=== PATIENT | female | born 1955 | race Caucasian/White ===

== ENCOUNTER → 2023-12-11 10:49 | Outpatient (CLI) | payer MEDICARE, OTHER, SELFPAY ==
--- NOTE | 2023-12-11 10:52 | DI.NM.S_ITS ---
PROCEDURE: NM BONE SCAN WHOLE BODY RADIOPHARMACEUTICAL: 20.8 mCi Tc-99m MDP IV. INDICATIONS: LOWER BACK PAIN,RENAL TECHNIQUE: Delayed whole-body scintigrams were obtained approximately 3-4 hours after intravenous injection of radiotracer. Anterior and posterior views were acquired from vertex to feet. COMPARISON: None. FINDINGS: No findings concerning for metastatic disease. Mildly increased activities within several joints including the shoulders and ankles, most consistent with degenerative changes. Left kidney appears absent. IMPRESSION: No findings concerning for metastatic disease. Dictated by: Esvin Perry M.D. on 12/11/2023 at 15:35 Approved by: Esvin Perry M.D. on 12/11/2023 at 15:37
== END ==
LOC: NUCM 10:51
PROVIDERS: PCP Nurse Practitioner Family; Referring Provider Nurse Practitioner Adult Health; Visit Provider Nurse Practitioner Adult Health
DX: C79.81 Secondary malignant neoplasm of breast (principal); C78.00 Secondary malignant neoplasm of unspecified lung; M54.50 Low back pain, unspecified; Z85.528 Personal history of other malignant neoplasm of kidney; Z90.5 Acquired absence of kidney
CPT/HCPCS: 78306; A9503

== ENCOUNTER 2025-01-07 10:42 | Day surgery (SDC) | payer MEDICARE, OTHER, SELFPAY ==
--- NOTE | 2025-01-07 | PATH_ITS ---
[facility] Accession Number: [id number] No. of containers..01 Tissue . 01 Material submitted: . gastrointestinal site - ANTRUM . 01 Clinical history: . R/O H.PYLORI . 01 Diagnosis: GASTRIC ANTRUM, BIOPSY: Gastric antral mucosa with mild chronic inflammation. Negative for Helicobacter organisms by immunohistochemistry. Negative for intestinal metaplasia. Negative for dysplasia or malignancy. [facility] 01/16/20252034 Local . 01 Electronically signed: . Victor M Wiley MD, PhD, Pathologist NPI- [id number] . 01 Gross description: . Received is one formalin-filled container labeled with the patient's name and labeled antrum, are two fragments of weiss, soft tissue which range in size from less than 0.1 cm to 0.3 x 0.2 x 0.2 cm. All fragments are totally submitted in cassette A1. ([id number]) /[facility] 01/14/2025 0847 Local . 01 Microscopic: . A. An immunohistochemical stain was performed to evaluate for Helicobacter organisms and is negative. The control stain showed appropriate reactivity. . * This test was developed and the performance characteristics were validated by [facility]. It has not been cleared or approved by the U.S. Food and Drug Administration. . 01 Pathologist provided ICD-10: K29.70 . 01 CPT . 608267, N21234 Specimen Comment: A courtesy copy of this report has been sent to [facility] Pathology Performed at: [address] [address], [place], [place] [id number] MD Modesto Lott MD Phone: [phone]
--- NOTE | 2025-01-07 06:48 | P.HP_ITS ---
History of Present Illness History of Present Illness Date Patient Seen: 01/07/25 Time Patient Seen: 06:48 [place] [facility] [place]: 69yo F presents for EGD today. H/O GERD, Kasie 10 years ago at [facility]. Has coronary stents, off Plavix to asa now. Meds Home Medications and Allergies Home Medications ?Medication ?Instructions ?Recorded ?Confirmed ?Type amlodipine 2.5 mg tablet 2.5 mg PO DAILY 12/02/2408/23 History amlodipine 5 mg tablet 5 mg PO DAILY 12/02/2412/02 History aspirin 81 mg chewable tablet 81 mg PO DAILY 12/02/24 12/02/24 History atorvastatin 40 mg tablet 40 mg PO DAILY 12/02/2408/23 History cabozantinib 20 mg tablet 20 mg PO DAILY 12/02/2408/23 History (Cabometyx) cranberry extract 500 mg capsule 500 mg PO BID 5 12/02/24 History famotidine 10 mg tablet (Pepcid AC) 10 mg PO DAILY 08/2312/02/24 History felodipine 10 mg tablet,extended 10 mg PO DAILY 12/02/24 History release 24 hr ipratropium bromide 21 mcg (0.03 2 spray intranasal 3X D PRN 12/02/24 12/02/24 History %) nasal spray allergies losartan 100 mg tablet 100 mg PO DAILY 12/02/2408/23 History melatonin 10 mg tablet 10 mg PO BEDTIME PRN 5 12/02/24 History tolterodine 4 mg capsule,extended 4 mg PO QPM 12/02/24 12/02/24 History release 24 hr trazodone 50 mg tablet 100 mg PO ONCE PM 12/02/24 0 12/02/24 History Allergies Allergy/AdvReac Type Severity Reaction Status Date / Time No Known Drug Allergies Allergy Unverified 12/02/24 10:39 Exam Narrative Exam Narrative: Const General: comfortable Orientation: alert and oriented x3 Resp Effort & Inspection: normal respiratory effort and able to speak in complete sentences Cardio Rate: regular rate GI Palpation: soft (NT) Extrem General: no pedal edema and no calf tenderness Assessment & Plan Assessment and plan (1) Encounter for screening colonoscopy: Status: Acute Plan Plan screening colonoscopy, possible biopsy. The risks, benefits and options regarding the procedure were explained to the patient in detail. Risk discussion included but not limited to: bleeding, perforation, missed lesion, unable to reach cecum. The patient was encouraged to ask questions and they were answered to their satisfaction. The patient understands and is agreeable to proceed. Time-Based Coding :: [TOTAL MINUTES] spent with patient and on the chart (including review of chart, obtaining history, exam, reviewing outside data, placing orders, documenting exam and treatment plan, and counseling patient) on [DATE]. PROFEE Artist Color Separation Document charge(s): Yes Charge Codes Inpatient/observation care including admit and discharge same day: [id number]
[2025-01-07] MEDS: LACTATED RINGERS 1,000 ML 42 ML IV (12:00)
[2025-01-07 12:14] VITALS: BP 147/83; PULSE 83; RESP 18; TEMP 36.4; O2SAT 94
--- NOTE | 2025-01-07 12:31 | EKG_ITS ---
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
--- NOTE | 2025-01-07 13:09 | PM.OP.EGD ---
Operative Date/Time/Diagnoses Date of procedure: 01/07/25 Time of procedure: 13:22 Pre-op diagnosis: GERD, h/o Kasie Post-op diagnosis: other (Hiatal hernia, antral gastritis, gastric erosions along greater curvature, hyperplastic gastric polyps typical of PPI ) Procedure & Clinicians Study performed: EGD with biopsy Same procedure(s) as scheduled: Yes Indications: 69y F h/o Kasie, c/o GERD Surgeon: Christian Zheng Anesthesia Type: MAC +/- Procedure Notes SCOAP/Timeout: Performed Procedure in detail: EGD Informed consent was obtained. The procedure, its risks, benefits, and alternatives were discussed. Patient understood and agreed to proceed. The patient was placed in the left lateral decubitus position with head elevated. Sedation given per anesthesia. The video endoscope was inserted into the oropharynx and guided under direct vision into the esophagus, stomach, and duodenum which were carefully examined. The scope was retroflexed to examine the hiatus and gastroesophageal junction. Antral biopsies were obtained for Helicobacter pylori. The patient tolerated the procedure very well. There were no apparent complications. Significant EGD findings: Z-line noted at: 38cm Hiatal hernia, minimal evidence for fundic wrap No esphagitis LES patulous Gastric erosions along greater curvature Antral gastritis, moderate, biopsies taken for hpylori Numerous hyperplastic gastric polyps typical of PPI Findings: hiatal hernia and other findings (hyperplastic polyps due to PPI, gastric erosions) Specimen(s): other (antral biopsies for hpylori) Complications: none Impression: Hiatal hernia No evidence for wrap LES open, patulous Gastric polyps due to PPI Gastric erosions Antral gastritis Post-procedure Recommendations: Will call with biopsy results Plan for aftercare: PACU then home PPI Follow up: as needed Disposition: PACU
[2025-01-07 13:25] VITALS: BP 135/64; PULSE 70; RESP 23; TEMP 36.6; O2SAT 94
[2025-01-07 13:27] VITALS: BP 133/67; PULSE 72; RESP 16; O2SAT 94
[2025-01-07 13:32] VITALS: BP 127/65; PULSE 71; RESP 16; O2SAT 94
== END 2025-01-07 13:39 | disposition home or self-care (01) ==
PROVIDERS: PCP Nurse Practitioner Family; Referring Provider Nurse Practitioner Family; Visit Provider Surgery
PROC: 0DJ08ZZ Inspection of Upper Intestinal Tract, Via Natural or Artificial Opening Endoscopic (ICD-10-PCS; CPT 43239; principal; 2025-01-07 12:15)
DX: K21.9 Gastro-esophageal reflux disease without esophagitis (principal); Z95.818 Presence of other cardiac implants and grafts; Z98.890 Other specified postprocedural states; K44.9 Diaphragmatic hernia without obstruction or gangrene; K25.9 Gastric ulcer, unspecified as acute or chronic, without hemorrhage or perforation; K31.7 Polyp of stomach and duodenum; K29.50 Unspecified chronic gastritis without bleeding
CPT/HCPCS: 43239; 93005; J2704